=== PATIENT | male | born 1945 | race Caucasian/White ===

== ENCOUNTER 2018-08-22 08:14 | Emergency (ER) | payer MEDICARE, OTHER, SELFPAY ==
[2018-08-22 08:18] VITALS: BP 122/84; PULSE 92; RESP 17; TEMP 36.8; O2SAT 95; BMI 27.6
--- NOTE | 2018-08-22 08:20 | CT_ITS ---
STUDY: CT CERVICAL SPINE WITHOUT CONTRAST REASON FOR EXAM: Male, 73 years old. Status post fall RADIATION DOSAGE (If Supplied By Facility): CTDIvol = ( 26.68 ) mGy, DLP = ( 537.92 ) mGycm TECHNIQUE: High resolution transaxial imaging was performed without contrast material. Sagittal and coronal images were reconstructed. Individualized dose optimization techniques were used for this CT. COMPARISON: None FINDINGS: Normal craniovertebral junction. Normal anterior atlantoaxial articulation. Normal odontoid process. Normal cervical lordosis. Normal vertebral bodies and posterior osseous elements. No acute fracture or listhesis. [id number] multilevel degenerative disc disease without critical central canal stenosis. Normal mineralization. Soft tissues are within normal limits outside of possible nodules in the right lung apex. Scattered atherosclerotic disease of the carotid arteries CT/Spine Cervical without Contras IMPRESSION: Multilevel degenerative changes, as described above. Questionable right upper lobe pulmonary nodule. Nonemergent dedicated chest CT is recommended to further evaluate Electronically Signed: Oliverio Gallegos DO at 9:00 EST Tel , Service support ,
--- NOTE | 2018-08-22 08:20 | CT_ITS ---
STUDY: CT BRAIN WITHOUT CONTRAST REASON FOR EXAM: Male, 73 years old. Status post fall 12 feet RADIATION DOSAGE (If Supplied By Facility): CTDIvol = ( 44.99 ) mGy, DLP = ( 846.73 ) mGycm TECHNIQUE: Transaxial CT imaging of the brain was performed without administration of intravenous contrast material. Individualized dose optimization techniques were used for this CT. COMPARISON: None. FINDINGS: Soft tissue laceration in the scalp overlying the right temporal bone. Normal calvarium. There is mild cerebral atrophy with widening of the extra-axial spaces and ventricular dilatation. There are areas of decreased attenuation within the white matter tracts of the supratentorial brain, consistent with microvascular disease changes. Normal basal ganglia and thalami. Normal brainstem. Normal cerebellum. There is no intracranial hemorrhage. There are no findings of an acute ischemic infarction. Normal visualized paranasal sinuses. CT/Brain/Head without Contrast IMPRESSION: Chronic involutional changes of the brain. Right scalp laceration Electronically Signed: Oliverio Gallegos DO at 8:59 EST Tel , Service support ,
--- NOTE | 2018-08-22 08:21 | ED.VISSUMM ---
- ER Visit Summary Date of Service: 08/22/18 Chief Complaint: Fall, head injury History of Present Illness: The patient is a 73 M with history of hypertension and hyperlipidemia presents to the emergency department after a fall. Patient was on a ladder. He was approximately 12 feet up. He states that he lost his footing on the latter and was holding onto rafters on the roof. 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 He states he landed on his feet and then fell forward. He struck the right side of his face. He is unsure if he lost consciousness. He denies any other pain. He only complains of a mild headache. He denies any visual change. He does have some amnesia to the event. He does take baby aspirin. He is on no other anticoagulants. Physical Examination: Vital signs reviewed General: Well-nourished, well-developed Head: Normocephalic, laceration of the right upper forehead approximately 3 cm. No step-off. No deformity. TMs clear. Eyes: Pupils equal and reactive, extraocular muscles intact Neck, supple, no lymphadenopathy, no midline tenderness Heart: Regular rate and rhythm Respiratory: No distress, clear bilaterally Abdomen: Soft, nontender, nondistended, no peritoneal signs Back: Nontender Extremities: Nontender, no edema, no cords Skin: Normal color no rash Neuro: Alert and oriented, no focal or lateralizing deficits, GCS 15 Test Results: [] Emergency Department Course and Treatment: The patient presents with fall from height with head laceration. He does not think he lost consciousness but did have some amnesia. His GCS is 15. He answers questions appropriately. His neuro exam is unremarkable. Given his age and mechanism, I did obtain CT of the head and C-spine. These are unremarkable for acute injury. Patient does have a nodule in his lung that will need outpatient follow-up. His wound was anesthetized and irrigated. His tetanus was updated. It was closed with 6 simple interrupted suture. He tolerated this without issue. Patient has no further complaints. He ambulates with a steady gait. At this time, I do feel he is safe for outpatient follow-up. He will be discharged home. Treatment Plan: [] Disposition: Discharge Impression: 1. Fall from height 2. 3 cm scalp laceration with repair This note was generated with [employer] software. It may contain incorrect words, spelling, and punctuation that were not noted in review of the chart prior to signing ED Disposition - Plan for ED Patient: Chief Complaint: Fall Instructions: ED Mechanical Fall, ED Laceration All Referrals: Buster Fowler MD [Primary Care Provider] - 5 Days for suture removal
[2018-08-22] MEDS: Diphth,Pertuss(Acell),Tet Vac 0.5 ML Vial IM (09:27)
[2018-08-22 09:31] VITALS: BP 139/64; PULSE 71; RESP 17
[2018-08-22 10:01] VITALS: PULSE 71; RESP 17
== END 2018-08-22 10:03 | disposition home or self-care (01) ==
PROVIDERS: Emergency Provider Emergency Medicine; Family Provider Family Medicine; PCP Family Medicine
DX: S01.01XA Laceration without foreign body of scalp, initial encounter (principal); S06.0X9A Concussion with loss of consciousness of unspecified duration, initial encounter; W11.XXXA Fall on and from ladder, initial encounter; R91.1 Solitary pulmonary nodule; I10 Essential (primary) hypertension; E78.5 Hyperlipidemia, unspecified; Z79.82 Long term (current) use of aspirin; Z79.899 Other long term (current) drug therapy
CPT/HCPCS: 12002; 70450; 72125; 90471; 90715; 99284

== ENCOUNTER 2019-05-07 12:30 | Emergency (ER) | payer MEDICARE, OTHER, SELFPAY ==
[2019-04-29 08:34] VITALS: BMI 28.6
[2019-05-07 12:31] VITALS: BP 127/97; PULSE 99; RESP 18; TEMP 36.6; O2SAT 95; BMI 29.9
--- NOTE | 2019-05-07 13:09 | ED.VIS.UPPEX ---
History of Present Illness Chief Complaint: Wound Check Detail of Chief Complaint: Foreign body left index finger Informant: Patient Occurred: Today Onset: Today Current Severity: Mild Maximum Severity: Mild Narrative: She presents with a long staple in the distal aspect of his left index finger through the nail. He states he was working on a project with a circular saw when a large stapler fired into his finger. He is right-hand dominant. He is unsure of his last tetanus update. Past Medical History - Allergies and Home Meds Allergies/Adverse Reactions: Allergies No Known Allergies Allergy (Verified 05/07/19 12:33) Primary Care Physician: Buster Fowler MD [Primary Care Provider] - Smoking Status: Current every day smoker - Family History Sibling Family History: Family History (Last Reviewed 04/29/19 @ 09:23 by TATO Chino) Sister Hypertension Family History: Reports: Hypertension Review of Systems General: Denies: Chills, Fever Eyes: Denies: Visual changes - bilaterally ENT: Denies: Bilateral ear pain Cardiovascular: Denies: Chest pain Respiratory: Denies: Dyspnea Gastrointestinal: Denies: Abdominal pain Musculoskeletal: Reports: Arthralgias, Extremity Pain Neurological: Denies: Parasthesia, Numbness Hematologic: Denies: Easy bruising, Easy bleeding Allergy: Denies: Uticaria Physical Exam Vital Signs/Narrative: Vital Signs Temp Pulse Resp BP Pulse Ox 05/07/19 12:31 97.9 F 99 18 127/97 H 95 Left Finger: - - Metal staple projecting from the distal left index finger through the nail and into the distal phalanx. Patient has full range of motion of the digit with good cap refill and sensation distally. General: Well nourished, Well developed ENT: No Trauma Neck: Nontender Cardiovascular: Regular rate Respiratory: No distress Abdomen: Soft, Nontender Neurological: Alert, Oriented x3, Normal Strength, Normal Sensation Psychological: Normal affect ED Disposition - Plan for ED Patient: Disposition: Home or Assisted Living Diagnosis: Soft tissues foreign body, Puncture wound Instructions: PUNCTURE WOUND, General Referrals: Buster Fowler MD [Primary Care Provider] - 1 Week if not improving
[2019-05-07] MEDS: Diphth,Pertuss(Acell),Tet Vac 0.5 ML Vial IM (13:22)
--- NOTE | 2019-05-07 13:45 | RAD_ITS ---
STUDY: X-RAY - LEFT HAND, ATTENTION INDEX FINGER REASON FOR EXAM: Male, 74 years old. Post foreign body removal. TECHNIQUE: 3 view(s) of the finger were obtained. COMPARISON: None. FINDINGS: Normal metacarpal head. Normal metacarpophalangeal joint. Normal proximal phalanx. Normal middle phalanx. Normal distal phalanx. Normal proximal interphalangeal joint. Normal distal interphalangeal joint. Soft tissue swelling overlying the proximal digit. A tiny radiopacity seen along the dorsal aspect of the soft tissues overlying the head of the proximal phalanx. RAD/Finger(s) Min 2 Views IMPRESSION: Soft tissue swelling with air seen in the ventral aspect of the soft tissues in keeping with the history of a foreign body removal. Tiny radiopaque specks seen in the soft tissues overlying the distal aspect of the proximal phalanx dorsally. Electronically Signed: Evens Gibbs, at 14:09 EDT , Service support ,
[2019-05-07 14:22] VITALS: RESP 19
== END 2019-05-07 14:22 | disposition home or self-care (01) ==
PROVIDERS: Emergency Provider Emergency Medicine; Family Provider Family Medicine; PCP Family Medicine
DX: S61.241A Puncture wound with foreign body of left index finger without damage to nail, initial encounter (principal); W26.8XXA Contact with other sharp object(s), not elsewhere classified, initial encounter; Y93.89 Activity, other specified; Y92.89 Other specified places as the place of occurrence of the external cause; Y99.9 Unspecified external cause status; Z23 Encounter for immunization
CPT/HCPCS: 20103; 73140; 90471; 90715; 99283

== ENCOUNTER → 2019-09-22 10:48 | Outpatient (CLI) | payer MEDICARE, OTHER, SELFPAY ==
[2019-09-22 13:40] LABS: Anion Gap 7 (5-15); BUN 22 mg/dL (7-18); BUN/Creat Ratio 25.5 RATIO (10-20); Calcium,Total 9.5 mg/dL (8.5-10.1); Chloride 108 mmol/L (98-107); Creatinine, Serum 0.86 mg/dL (0.70-1.30); EST Glomerular Filtration Rate 92 mL/min (>60); Est Glom Filt Rate - Afr Amer 112 mL/min (>60); Glucose 81 mg/dL (74-106); Sodium Level 140 mmol/L (136-145)
== END ==
PROVIDERS: Physician Assistant Medical; PCP Family Medicine; Referring Provider Internal Medicine Cardiovascular Disease; Visit Provider Internal Medicine Cardiovascular Disease
DX: I10 Essential (primary) hypertension (principal); I42.8 Other cardiomyopathies
CPT/HCPCS: 36415; 80048

== ENCOUNTER → 2020-05-17 13:51 | Outpatient (CLI) | payer MEDICARE, OTHER, SELFPAY ==
[2020-05-03 10:05] VITALS: BMI 30.4
--- NOTE | 2020-05-17 13:52 | ECHOCS_ITS ---
Version 2 Reason For Study: CM Procedure This was a 2D Doppler, Color Flow transthoracic echocardiogram. The study was technically difficult. Contrast injection was performed. Exam performed in department. Left Ventricle Normal LV size. Apical false tendon noted. Mild segmental systolic dysfunction (see wall motion). The estimated ejection fraction is 50 %. No evidence for diastolic dysfunction. No regional wall motion abnormalities noted. Right Ventricle Normal RV size. Normal systolic function. Atria The left atrium is mildly enlarged. Normal right atrium. No doppler evidence for ASD. Mitral Valve There is no mitral annular calcification. Normal mitral valve. Trivial mitral valve insufficiency. Tricuspid Valve Normal tricuspid valve. Mild to moderate (1-2+) tricuspid valve insufficiency. Right ventricular systolic pressure estimated to be 26 mmHg. Aortic Valve Trisinus/trileaflet aortic valve. Normal aortic valve. Pulmonic Valve The pulmonic valve is not well visualized. Great Vessels Normal sized aortic root. Pericardium/Pleural No pericardial effusion. Medication Diluted definity 4ml given slow IV push to enhance endocardial definition. MMode/2D Measurements & Calculations LVIDd: 4.4 cm IVSd: 1.3 cm Ao root diam: 3.6 cm LVIDs: 3.3 cm LVPWd: 1.1 cm RVDd: 4.1 cm FS: 24.4 % LAV(MOD-bp): 47.8 ml LVAd ap4: 37.4 cm2 SV(MOD-sp4): 75.8 ml LAV(MOD-bp) Indexed: 23.7 ml/m2 EDV(MOD-sp4): 133.0 ml LAV(MOD-sp2): 43.3 ml EDV(sp4-el): 139.4 ml LAV(MOD-sp4): 49.1 ml LVAs ap4: 22.6 cm2 ESV(MOD-sp4): 57.1 ml ESV(sp4-el): 60.2 ml EF(MOD-sp4): 57.0 % EF(sp4-el): 56.9 % SV(sp4-el): 79.3 ml LA A4 area: 19.3 cm2 LA dimension(2D): 4.0 cm RA A4 area: 20.6 cm2 Doppler Measurements & Calculations MV E max enio: 62.7 cm/sec Lat Peak E' Enio: 9.5 cm/sec Med Peak E' Enio: 9.6 cm/sec MV A max enio: 69.5 cm/sec E/E' lat: 6.6 E/E' med: 6.6 MV E/A: 0.90 Ao V2 max: 116.5 cm/sec LV V1 max: 100.8 cm/sec PA V2 max: 83.5 cm/sec Ao max P.4 mmHg LV V1 max P.1 mmHg Ao V2 mean: 80.0 cm/sec Ao mean P.8 mmHg Ao V2 VTI: 23.3 cm TR max enio: 239.3 cm/sec TR max P.9 mmHg Interpretation Summary The study was technically difficult. Contrast injection was performed. Mild segmental systolic dysfunction (see wall motion). The estimated ejection fraction is 50 %. No evidence for diastolic dysfunction. Apical false tendon noted. The left atrium is mildly enlarged. Trivial mitral valve insufficiency. Mild to moderate (1-2+) tricuspid valve insufficiency. Right ventricular systolic pressure estimated to be 26 mmHg. No evidence for diastolic dysfunction. Ordering Physician: Mike Holland Referring Physician: Raymond Fowler Performed By: Leila Ponce, BRITT, RVT
== END ==
PROVIDERS: PCP Family Medicine; Referring Provider Internal Medicine Cardiovascular Disease; Visit Provider Internal Medicine Cardiovascular Disease
DX: I42.8 Other cardiomyopathies (principal)
CPT/HCPCS: 93306; Q9957; A4216; C8929

== ENCOUNTER → 2020-10-06 09:48 | Outpatient (CLI) | payer MEDICARE, OTHER, SELFPAY ==
[2020-10-06 09:01] VITALS: BMI 30.7
[2020-10-06 11:48] LABS: AST(SGOT) 21 U/L (15-37); Alanine Aminotransfer ALT/SGPT 25 U/L (16-61); Albumin, Serum 3.3 g/dL (3.2-5.0); Alkaline Phosphatase 79 U/L (45-117); Bilirubin, Direct 0.13 mg/dL (0.00-0.30); Cholesterol 170 mg/dL (200); Globulin 4.2 g/dL (2.2-4.2); High Density Lipoprotein 61 mg/dL; Protein, Total 7.5 g/dL (6.4-8.2); Triglycerides 73 mg/dL; Very Low Density Lipoprotein 15 mg/dL (5-40)
== END ==
PROVIDERS: PCP Family Medicine; Referring Provider Nurse Practitioner Family; Visit Provider Nurse Practitioner Family
DX: E78.5 Hyperlipidemia, unspecified (principal); Z72.0 Tobacco use
CPT/HCPCS: 36415; 80061; 80076